=== PATIENT | male | born 1950 | race Caucasian/White ===

== ENCOUNTER 2023-03-15 15:23 | Emergency (ER) | payer OTHER, SELFPAY ==
[2023-03-15 15:30] VITALS: BP 139/70; PULSE 69; RESP 20; TEMP 36.8; O2SAT 95
[2023-03-15 15:39] VITALS: BP 139/70; PULSE 69; RESP 20; TEMP 36.8; O2SAT 95
--- NOTE | 2023-03-15 15:39 | ED.URI ---
HPI - URI/Sore Throat General Chief Complaint: Upper Respiratory Infection Stated Complaint: cold/flu History of Present Illness HPI Narrative: Patient presents with a cough. Patient just finished a Z-Nemesio given to him by his primary care provider Friday. Patient has Kami Bonilla denies any shortness of breath no chest pain no fever. Related Data Home Medications Medication Instructions Recorded Confirmed amlodipine 10 mg tablet mg 03/15/23 azithromycin 250 mg tablet mg 03/15/23 benzonatate 100 mg capsule mg PO 03/15/23 fenofibrate 160 mg tablet mg 03/15/23 finasteride 5 mg tablet mg 03/15/23 fluticasone fur. 100 mcg-umeclid inhalation 03/15/23 62.5 mcg-vilant 25 mcg inhalat.powder (Trelegy Ellipta) hydrochlorothiazide 25 mg tablet mg 03/15/23 omeprazole 20 mg capsule,delayed mg 03/15/23 release oxybutynin chloride 5 mg tablet mg 03/15/23 potassium chloride 10 mEq meq PO 03/15/23 tablet,extended release Allergies Allergy/AdvReac Type Severity Reaction Status Date / Time No Known Allergies Allergy Verified 03/15/23 15:35 Review of Systems Review of Systems: CONSTITUTIONAL: Denies chills, or sweats. Reports fever and generalized body aches EYES: Denies visual changes, redness, or discharge. ENT: Denies otalgia. Reports nasal congestion runny nose and sore throat CARDIOVASCULAR: Denies chest pain, palpitations, or edema. RESPIRATORY: Denies dyspnea. Reports occasional cough GASTROINTESTINAL: Denies abdominal pain, nausea, vomiting, or diarrhea. GENITOURINARY: Denies dysuria or hematuria. SKIN: Denies rash or itching. MUSCULOSKELETAL: Denies back pain, joint pain, or myalgia. Reports generalized body aches NEUROLOGIC: Denies headache, numbness, or weakness. PSYCHIATRIC: Denies anxiety or depression. PMFSH Comments At time of signature, agree with nursing past medical, surgical, social and family history. There is no relevant family history pertinent to the presenting complaint Exam Narrative: The patient is a well-developed, well-nourished in no acute distress. SKIN: Skin is warm and dry without erythema, swelling or exudate. There is good turgor. No tenting. HEAD: Atraumatic. Normocephalic. No temporal or scalp tenderness. EYES: Moist and bright. Sclera and conjunctivae normal. No discharge. PERRLA. Extraocular motions intact. Gross visual acuity intact. EARS: Pinna is normal shape and contour. Clear external auditory canals. TM pearly barfield with good cone of light, no erythema or suppuration. Bilateral cerumen noted no gross hearing deficit. NOSE: pink, moist mucosa with good air movement. Clear rhinorrhea without nasal flaring. Septum midline. Mouth: moist mucous membranes. THROAT; mild erythema noted to posterior oropharynx with moderate postnasal drainage. Without exudate or ulceration.. Uvula midline. Normal movement of soft palate. NECK: Supple and nontender with full range of motion without discomfort. No meningeal signs. LUNGS: Equal and bilateral breath sounds without wheezes, rales or rhonchi. CHEST: The chest wall is without retractions or use of accessory muscles. HEART: Has a regular rate and rhythm without murmur, gallops, click or rub. ABDOMEN: Soft, nontender with positive active bowel sounds. No rebound tenderness. EXTREMITIES: Without cyanosis, clubbing or edema. Equal 2+ distal pulses and 2 second capillary refill noted. NEUROLOGIC: alert, active, . The patient moves all extremities with normal muscle strength. Normal muscle tone is noted. Normal coordination is noted. NO focal neurological findings noted. Course Course Level of Care: Express Care Visit Vital Signs Vital signs: Vital Signs Temperature 36.8 C 03/15/23 15:30 Pulse Rate 69 03/15/23 15:30 Respiratory Rate 20 03/15/23 15:30 Blood Pressure 139/70 03/15/23 15:30 Pulse Oximetry 95 03/15/23 15:30 Oxygen Delivery Room Air 03/15/23 15:30 Temperature 36.8 C 03/15/23 15:30 Pulse Rate
== END 2023-03-15 15:47 | disposition home or self-care (01) ==
PROVIDERS: Emergency Provider Nurse Practitioner Family; PCP Internal Medicine
DX: J40 Bronchitis, not specified as acute or chronic (principal); E89.0 Postprocedural hypothyroidism; Z85.850 Personal history of malignant neoplasm of thyroid; Z85.47 Personal history of malignant neoplasm of testis
CPT/HCPCS: 99211; G0463